=== PATIENT | male | born 1995 | race Caucasian/White ===

== ENCOUNTER 2016-12-14 06:50 | Emergency (ER) | payer MEDICAID ==
[2016-12-14] MEDS ORDERED: TDAP ADULT 0.5 ML INJ (BOOSTRIX) IM ONE (07:05)
[2016-12-14] MEDS ORDERED: IPRATROPIUM/ALBUTEROL 3 ML DEYVIAL IH ONE (07:14)
[2016-12-14] MEDS ORDERED: NS 1,000 ML IV ONE (07:14)
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
[2016-12-14] MEDS ORDERED: IPRATROPIUM/ALBUTEROL 3 ML DEYVIAL ONE (07:29)
[2016-12-14 07:41] VITALS: TEMP 97.5
[2016-12-14 08:39] VITALS: BP 122/74; PULSE 85; RESP 16; O2SAT 96
[2016-12-14] MEDS ORDERED: ALBUTEROL INH PREPACK MDI TAKEHOME ONE (09:13)
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
== END 2016-12-14 09:30 | disposition home or self-care (01) ==
DX: S21.102A Unspecified open wound of left front wall of thorax without penetration into thoracic cavity, initial encounter (principal); R05 Cough; E86.9 Volume depletion, unspecified; Z23 Encounter for immunization; W26.0XXA Contact with knife, initial encounter

== ENCOUNTER 2018-02-18 17:47 | Emergency (ER) | payer MEDICAID ==
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
[2018-02-18] MEDS ORDERED: HYDROCOD/APAP 5/325 PREPACK#6 BTL TAKEHOME ONE (19:39)
[2018-02-18 19:56] VITALS: BP 142/76
== END 2018-02-18 19:54 | disposition home or self-care (01) ==
DX: S30.0XXA Contusion of lower back and pelvis, initial encounter (principal); F17.200 Nicotine dependence, unspecified, uncomplicated; V18.0XXA Pedal cycle driver injured in noncollision transport accident in nontraffic accident, initial encounter; Y92.838 Other recreation area as the place of occurrence of the external cause; Y93.55 Activity, bike riding; Y99.9 Unspecified external cause status

== ENCOUNTER 2018-03-05 09:22 | Emergency (ER) | payer MEDICAID ==
[2018-03-05 09:26] VITALS: BP 137/91
[2018-03-05] MEDS ORDERED: LET GEL TOPICAL 1 EA SYR TP ONE ×2 (09:28→09:29)
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
== END 2018-03-05 10:01 | disposition home or self-care (01) ==
DX: S60.511A Abrasion of right hand, initial encounter (principal); S60.512A Abrasion of left hand, initial encounter; V18.0XXA Pedal cycle driver injured in noncollision transport accident in nontraffic accident, initial encounter; Y92.410 Unspecified street and highway as the place of occurrence of the external cause